=== PATIENT | male | born 1950 | race Caucasian/White ===

== ENCOUNTER 2020-11-01 20:31 | Emergency (ER) | payer MEDICARE ==
[~2020-11-01] VITALS: Ht 177.8 cm; Wt 79.4 kg
[2020-11-01] MEDS ORDERED: CARVEDILOL25 MG PO (20:56)
[2020-11-01] MEDS ORDERED: ELIQUIS5 MG PO (20:56)
[2020-11-01] MEDS ORDERED: LIPITOR40 MG PO (20:56)
[2020-11-01] MEDS ORDERED: COZAAR 25 MG TA25 M2 PO (20:57)
[2020-11-01] MEDS ORDERED: LORAZEPAM 0.50.5 MG PO (20:57)
[2020-11-01] MEDS ORDERED: DEXAMETHASONE4 MG PO (20:57)
[2020-11-01] MEDS ORDERED: ROXICODONE5 MG PO (20:58)
[2020-11-01] MEDS ORDERED: ZOFRAN ODT4 MG PO (20:58)
[2020-11-01] MEDS ORDERED: ALDACTONE50 MG PO (20:58)
[2020-11-01] MEDS ORDERED: VENTOLIN HFA 1818 GM INH (20:59)
[2020-11-01 21:12] LABS: HEMATOCRIT 21.6 % (42.0-52.0); MCH 25.3 pg (26.0-34.0); MCHC 31.8 g/dL (28.0-37.0); MCV 79.7 fL (80.0-100.0); MPV 8.8 fl. (7.2-11.1); NUCLEATED RBCS 0 /100WBC; PLATELET COUNT* 180 thou/uL (150-400); RBC 2.71 mil/uL (4.50-6.00); RDW-CV 19.5 % (10.5-14.5); WBC 10.4 thou/uL (4.0-11.0)
[2020-11-01 21:16] LABS: HEMOGLOBIN 6.9 gm/dL (14.0-18.0)
[2020-11-01 21:22] LABS: CALCIUM 8.4 mg/dL (8.5-10.1); CREATININE 1.2 mg/dL (0.6-1.3); POTASSIUM 5.4 mmol/L (3.5-5.1)
[2020-11-01 21:26] LABS: TOTAL BILIRUBIN 0.3 mg/dL (<0.1-1.0); TOTAL PROTEIN 6.1 g/dL (6.4-8.2)
[2020-11-01 21:41] LABS: ABSOLUTE EOSINOPHILS 0.2 thou/uL (0.0-0.7); ABSOLUTE LYMPHOCYTES 0.5 thou/uL (0.8-5.3); ABSOLUTE NEUTROPHILS 8.6 thou/uL (1.6-8.1); ANISOCYTOSIS 1+; HYPOCHROMASIA 1+; POIKILOCYTOSIS 1+; POLYCHROMASIA Occasional
[2020-11-01 21:42] LABS: MACROCYTES 1+; OVALOCYTES 1+
[2020-11-02 01:38] VITALS: BP 123/57
== END 2020-11-02 01:38 | disposition short-term general hospital (02) ==
LOC: M.ERS 20:31
PROVIDERS: Personal Emergency Response Attendant
DX: D64.9 Anemia, unspecified (principal); M79.661 Pain in right lower leg; C15.5 Malignant neoplasm of lower third of esophagus; Z79.899 Other long term (current) drug therapy; Z86.718 Personal history of other venous thrombosis and embolism; Z20.828 Contact with and (suspected) exposure to other viral communicable diseases